=== PATIENT | female | born 1975 | race Caucasian/White ===

== ENCOUNTER 2017-11-15 07:10 | Outpatient (CLI) | payer OTHER ==
--- NOTE | 2017-11-15 08:45 | ULT ---
RIGHT UPPER QUADRANT ULTRASOUND: HISTORY A 42-year-old female with a history of upper abdominal pain. FINDINGS: Liver echogenicity is unremarkable. The gallbladder demonstrates no evidence of gallstones, wall thi ckening, edema, or pericholecystic fluid. There is some minimal thicker density bile within the gall bladder. Common bile duct 0.5 cm. No focal liver mass. Pancreas and right kidney are unremarkable. IMPRESSION: No evidence of gallstones or ductal dilatation. POS: [facility]
== END 2017-11-15 07:11 | disposition home or self-care (01) ==
LOC: SCSULT 07:10
PROVIDERS: ATTEND Internal Medicine
DX: R10.10 Upper abdominal pain, unspecified (principal)
CPT/HCPCS: 76700; 76705